=== PATIENT | male | born 1980 | race Hispanic/Latino ===

== ENCOUNTER 2017-10-28 14:20 | Outpatient (CLI) | payer OTHER ==
--- NOTE | 2017-10-28 15:40 | RAD ---
THREE VIEWS LUMBOSACRAL SPINE: Comparison: None. History: Low back pain that radiates down the left leg. FINDINGS: Lateral views of the lumbosacral spine were performed in neutral, flexion, and extension. There is gr kadeem I anterolisthesis of L4 on L5. The other vertebral bodies demonstrate normal alignment without graham bluxation. Alignment is unchanged with flexion and extension. IMPRESSION: Unchanged spondylolisthesis at L4-5 with bending. POS: CASSIE
== END 2017-10-28 14:21 | disposition home or self-care (01) ==
LOC: TBSIIMAG 14:20
PROVIDERS: ATTEND Neurological Surgery
DX: M54.5 Low back pain (principal); M43.16 Spondylolisthesis, lumbar region
CPT/HCPCS: 72100

== ENCOUNTER 2018-01-19 06:26 | Day surgery (SDC) | payer OTHER ==
[2018-01-18 14:10] VITALS: BMI 30.8
--- NOTE | 2018-01-19 00:13 | HP ---
HISTORY OF PRESENT ILLNESS: Mr. Jeffrey is a 37-year-old [facility] [employer], who presents fo r evaluation of lower back pain and left lower extremity L5 pains with an MRI from [facility] that revea ls an L4-L5 slip grade I, as well as severe lateral recess stenosis. There is also moderate bilatera l neural foraminal narrowing and central canal narrowing at the same level. He has treated this with epidural steroid injections, RFA, and physical therapy with RFA helping the most. He has reached a point now though where he would like to treat this more definitively, perhaps with surgery. He has m ovement films in the way of flexion and extension x-rays that showed no instability at his spondyloli sthesis site. PAST MEDICAL HISTORY: Significant for sleep apnea and anxiety. MEDICATIONS: Gabapentin, naproxen, citalopram, and trazodone. ALLERGIES: No known drug allergies. PAST SURGICAL HISTORY: Vasectomy and vasectomy reversal, left Achilles repair. PHYSICAL EXAMINATION: The patient is alert and oriented x3. Gait is antalgic. Lower extremity wes r exam is normal. ASSESSMENT: Lumbar spondylolisthesis and lumbar radiculopathy. PLAN: Dr. Benites met with the patient, reviewed imaging, and advocated for an L4-L5 decompression. H e explained to the patient the risks, benefits, and alternatives to the procedure. The patient expre ssed understanding and would like to move forward with surgery as discussed. I do believe the patien t is mentally competent and capable of making medical decisions for himself and we will move forward with surgery as planned. Nazario Levy PA-C dictating for Dr. Benites.
[2018-01-19] MEDS ORDERED: CEFAZOLIN/Water 2 GM/20 ML SYRINGE ONE ×2 (07:54→13:00)
[2018-01-19] MEDS ORDERED: Midazolam HCl 2 mg/2 ml Vial ONE ×2 (08:43→08:46)
[2018-01-19] MEDS ORDERED: Fentanyl 250 MCG/5 ML VIAL ONE ×2 (08:43→11:05)
[2018-01-19] MEDS ORDERED: Bupivacaine HCl 0.5%/Epinephrine 1:200,000/PF 30 ml Vial ONE (09:27)
[2018-01-19] MEDS ORDERED: Thrombin 5000 UNITS/5 ML VIAL ONE (09:27)
--- NOTE | 2018-01-19 11:08 | OP ---
DATE OF PROCEDURE: 01/19/2018 SURGEON: Dr. Herbie Benites FRUIT PRESERVER: None. INDICATION: Pain. DIAGNOSIS: Lateral recess stenosis and central stenosis. PROCEDURE: L4-5 lumbar decompression. ANESTHESIA: General. TECHNIQUE: The patient was brought into the operating room and placed under general anesthesia. He was flipped from a supine or prone position on the operating room table. A linear incision was plann ed over the L4-L5 segment. After prepping and draping and after an appropriate operative pause, the incision was created. Soft tissues were swept away from midline. Self-retaining retractors placed i n the wound for optimal exposure. After confirming the appropriate level with C-arm fluoroscopy, an Adson rongeur was used to remove the spinous process at the L4-L5 segment. After removal of the spin ous process, high-speed cutting drill bit as well as 2, 3 and 4 mm Kerrisons were used to perform a l aminectomy at L4-5. The lateral recesses were decompressed. There was a copious amount of epidural fat identified which was also carefully removed until the segment was decompressed. The wound was ir rigated. Hemostasis was maintained throughout. The wound was then closed in anatomic layers and a p ressure dressing was applied. There were no known procedural complications.
[2018-01-19] MEDS ORDERED: HYDROcodone/Acetaminophen 5/325 mg Tablet ONE (13:00)
== END 2018-01-19 13:52 | disposition home or self-care (01) ==
LOC: SDC 06:26
PROVIDERS: ATTEND Neurological Surgery
PROC: 01NB0ZZ Release Lumbar Nerve, Open Approach (ICD-10-PCS; principal; 2018-01-19)
PROC: 0ST20ZZ Resection of Lumbar Vertebral Disc, Open Approach (ICD-10-PCS; principal; 2018-01-19)
DX: M48.061 Spinal stenosis, lumbar region without neurogenic claudication (principal); G47.30 Sleep apnea, unspecified; F41.9 Anxiety disorder, unspecified; F17.210 Nicotine dependence, cigarettes, uncomplicated; I10 Essential (primary) hypertension; Z79.1 Long term (current) use of non-steroidal anti-inflammatories (NSAID); Z79.899 Other long term (current) drug therapy
CPT/HCPCS: 76001; 96374; J0670; J2250; J3010